=== PATIENT | male | born 1965 | race Caucasian/White ===

== ENCOUNTER → 2023-11-15 16:09 | Outpatient (REF) | payer BC, SELFPAY | LOC: MRI 3T 16:09 | PROVIDERS: ATTENDING PHYSICIAN Podiatrist Foot & Ankle Surgery; FAMILY PHYSICIAN Family Medicine | DX: M25.775 Osteophyte, left foot (principal); M71.572 Other bursitis, not elsewhere classified, left ankle and foot | CPT/HCPCS: 73718 ==

== ENCOUNTER 2024-10-18 06:24 | Day surgery (SDC) | payer BC, SELFPAY | END 2024-10-18 15:03 | disposition home or self-care (01) | LOC: GI 06:24 | PROVIDERS: ATTENDING PHYSICIAN Internal Medicine Gastroenterology | DX: Z12.11 Encounter for screening for malignant neoplasm of colon (principal); K57.30 Diverticulosis of large intestine without perforation or abscess without bleeding; K64.8 Other hemorrhoids; D12.4 Benign neoplasm of descending colon; Z86.0100 Personal history of colon polyps, unspecified | CPT/HCPCS: 45385; 88305 ==